=== PATIENT | female | born 1970 | race African-American/Black ===

== ENCOUNTER 2020-10-26 10:30 | Emergency (ER) | payer OTHER ==
[~2020-10-26] VITALS: Ht 162.6 cm; Wt 83.0 kg
[~2020-10-26 10:30] MED LIST: Z.0.PRINIVIL10 MG
[2020-10-26] MEDS ORDERED: ONDANSETRON HCL 4 MG ORAL DISINTEGRATING TAB PO ONE (10:45)
[2020-10-26] MEDS ORDERED: ONDANSETRON HCL 4 MG ORAL DISINTEGRATING TAB ONE (10:52)
[2020-10-26] MEDS ORDERED: ONDANSETRON ODT4 MG PO (11:03)
[2020-10-26] MEDS ORDERED: AZITHROMYCIN500 MG PO (11:03)
== END 2020-10-26 11:18 | disposition home or self-care (01) ==
LOC: FSED 10:34
DX: K52.9 Noninfective gastroenteritis and colitis, unspecified (principal)
CPT/HCPCS: 99282; Q0162